=== PATIENT | female | born 1975 | race Caucasian/White ===

== ENCOUNTER → 2019-03-01 09:05 | Outpatient (CLI) | payer OTHER, SELFPAY ==
[2019-03-01 09:48] LABS: Hematocrit 39.7 % (36-46); Hemoglobin 13.7 g/dL (12.0-16.0); Mean Corpuscular HGB Conc 34.6 % (30-36); Mean Corpuscular Hemoglobin 30.8 PG (26-34); Mean Corpuscular Volume 89.1 fL (80-100); Platelet Count 221 X10^3/uL (150-400); Red Blood Cell Count 4.46 X10^6/uL (4.0-5.2); Red Cell Distribution Width 13.2 % (11.6-14.8); White Blood Cell Count 5.5 X10^3/uL (4.5-11.0)
[2019-03-01 10:06] LABS: Alanine Aminotransferase 18 IU/L (9-52); Albumin 4.2 g/dL (3.5-5.0); Albumin Globulin Ratio 1.4 (1.0-2.8); Alkaline Phosphatase 74 U/L (38-126); Aspartate Aminotransferase 24 IU/L (14-36); Bilirubin Total 0.5 mg/dL (0.2-1.3); Blood Urea Nitrogen 15 mg/dL (7-17); Calcium 8.9 mg/dL (8.4-10.2); Carbon Dioxide 29 mmol/L (22-32); Chloride 103 mmol/L (98-107); Cholesterol 253 mg/dL (140-199); Glucose 90 mg/dL (70-100); HDL Cholesterol 38 mg/dL (40-60); HEMOLYSIS < 15 (0-50); LDL Cholesterol Calculated 187 mg/dL (<100); Potassium 4.3 mmol/L (3.4-5.1); Sodium 139 mmol/L (137-145); Total Protein 7.2 g/dL (6.3-8.2); Triglycerides 141 mg/dL (35-150)
[2019-03-01 10:34] LABS: Thyroid Stimulating Hormone 1.67 uIU/mL (0.47-4.68)
== END ==
PROVIDERS: PCP Nurse Practitioner Family; Visit Provider Nurse Practitioner Family
DX: Z00.00 Encounter for general adult medical examination without abnormal findings (principal); E78.2 Mixed hyperlipidemia; E03.9 Hypothyroidism, unspecified
CPT/HCPCS: 36415; 80053; 80061; 84443; 85027

== ENCOUNTER → 2019-05-01 15:59 | Outpatient (CLI) | payer OTHER, SELFPAY ==
--- NOTE | 2019-05-01 16:05 | DI.RAD.S_ITS ---
PROCEDURE: XR KNEE LT 3V INDICATIONS: pain right elbow TECHNIQUE: 3 views of the knee were acquired. COMPARISON: None. FINDINGS: Bones: No fractures or dislocations. No suspicious bony lesions. Soft tissues: No joint effusion. No suspicious soft tissue calcifications. IMPRESSION: No acute osseous abnormalities. Dictated by: Manuel Quijano M.D. on 05/01/2019 at 17:58 Approved by: Manuel Quijano M.D. on 05/01/2019 at 17:59
--- NOTE | 2019-05-01 16:05 | DI.RAD.S_ITS ---
PROCEDURE: XR ELBOW RT MIN 3V INDICATIONS: pain right elbow TECHNIQUE: 3 views of the elbow were acquired. COMPARISON: None. FINDINGS: Bones: No fractures or dislocations. No suspicious bony lesions. Mild elbow joint degeneration with small osteophytes. Soft tissues: No elbow joint effusion. No suspicious soft tissue calcifications. IMPRESSION: No fracture or dislocation. Mild degenerative changes. Dictated by: Manuel Quijano M.D. on 05/01/2019 at 17:38 Approved by: Manuel Quijano M.D. on 05/01/2019 at 17:40
[2019-05-01 17:26] LABS: C-Reactive Protein Quant < 0.5 mg/dL (<1.0); Rheumatoid Factor < 8.6 IU/mL (<12.0); Uric Acid 4.2 mg/dL (2.5-6.2)
[2019-05-01 17:28] LABS: Erythrocyte Sedimentation Rate 11 MM/HR (0-20)
[2019-05-03 14:59] LABS: ANA Screen, IFA Positive (Negative); ANA Titer 1:40 titer (<1:40)
== END ==
PROVIDERS: PCP Nurse Practitioner Family; Visit Provider Nurse Practitioner Family
DX: M25.50 Pain in unspecified joint (principal)
CPT/HCPCS: 36415; 73080; 73562; 84550; 85651; 86038; 86140; 86430

== ENCOUNTER → 2019-05-21 15:42 | Outpatient (CLI) | payer OTHER, SELFPAY ==
--- NOTE | 2019-05-21 15:44 | DI.MG.S_ITS ---
BILATERAL DIGITAL SCREENING MAMMOGRAM 3D/2D WITH CAD: 05/21/2019 CLINICAL: Routine screening. Comparison is made to exam dated: 01/14/2018 [facility]. The tissue of both breasts is heterogeneously dense. This may lower the sensitivity of mammography. Current study was also evaluated with a Computer Aided Detection (CAD) system. No significant masses, calcifications, or other findings are seen in either breast. There has been no significant interval change. IMPRESSION: NEGATIVE There is no mammographic evidence of malignancy. A 1 year screening mammogram is recommended. This exam was interpreted at Station ID: [id number]. NOTE: For mammograms, a report in lay terms will be sent to the patient. Approximately 15% of breast malignancies will not be visualized mammographically. In the management of a palpable breast mass, a negative mammogram must not discourage biopsy of a clinically suspicious lesion. Electronically Signed By: Aron isabel/carina:05/21/2019 16:46:57 letter sent: Normal Exam ACR BI-RADS Category 1: Negative [id number]
== END ==
PROVIDERS: PCP Nurse Practitioner Family; Visit Provider Nurse Practitioner Family
DX: Z12.31 Encounter for screening mammogram for malignant neoplasm of breast (principal)
CPT/HCPCS: 77063; 77067

== ENCOUNTER → 2019-09-22 07:37 | Outpatient (CLI) | payer OTHER, SELFPAY ==
[2019-09-22 08:38] LABS: Cholesterol 253 mg/dL (140-199); HDL Cholesterol 35 mg/dL (40-60); LDL Cholesterol Calculated 182 mg/dL (<100); Triglycerides 178 mg/dL (35-150)
[2019-09-22 09:25] LABS: Thyroid Stimulating Hormone 2.92 uIU/mL (0.47-4.68)
== END ==
PROVIDERS: PCP Nurse Practitioner Family; Visit Provider Nurse Practitioner Family
DX: E78.2 Mixed hyperlipidemia (principal); E03.9 Hypothyroidism, unspecified
CPT/HCPCS: 36415; 80061; 84443

== ENCOUNTER 2019-12-22 20:49 | Emergency (ER) | payer OTHER, SELFPAY ==
[2019-12-22 20:53] VITALS: BP 152/81; PULSE 82; RESP 22; TEMP 36.7; O2SAT 100; BMI 27.4
--- NOTE | 2019-12-22 20:58 | DI.RAD.S_ITS ---
PROCEDURE: XR CHEST 1V INDICATIONS: cough, chest congestion TECHNIQUE: One view of the chest was acquired. COMPARISON: [facility], , CHEST 2 VIEW, 03/28/2015, 10:25. FINDINGS: Surgical changes and devices: None. Lungs and pleura: Lungs are clear. No pleural effusions or pneumothorax. Mediastinum: Mediastinal contours appear normal. Heart size is normal. Bones and chest wall: No suspicious bony lesions. Overlying soft tissues appear unremarkable. IMPRESSION: Normal chest. Dictated by: Xuan Ruvalcaba M.D. on 12/22/2019 at 22:22 Approved by: Xuan Ruvalcaba M.D. on 12/22/2019 at 22:23
[2019-12-22 23:57] VITALS: BP 150/69; PULSE 59; RESP 18; O2SAT 100
[2019-12-23 02:21] VITALS: BP 123/62; PULSE 75; RESP 77; O2SAT 99
--- NOTE | 2019-12-23 03:00 | ED_ITS ---
HPI - URI/Sore Throat General Chief Complaint: Upper Respiratory Symptoms Stated Complaint: respiratory issues, back pain Time Seen by Provider: 12/23/19 03:00 Source: patient Mode of arrival: Ambulatory Limitations: no limitations History of Present Illness HPI Narrative: 44-year-old female comes in with complaint of respiratory issues. Patient states while she was in [place] she developed a cough that fell wet but nonproductive. She had had a fever higher than 99 F, patient has had some stuffiness she states she has some difficulty popping her ears while traveling. She does not feel like she has a lot of nasal congestion. She felt a little bit dizzy this evening and her palms felt sweaty. She had a little bit of discomfort in her left upper back with cough. She denies any chest pressure or pain. Some mild shortness of breath. No nausea vomiting no other GI or urinary symptoms. No swelling in her extremities. Patient states she takes levothyroxine and a statin and denies any other medical issues. She has had hysterectomy. Patient is not on oral contraceptives. No tobacco. Symptoms started last Sunday. Related Data Home Medications Medication Instructions Recorded Confirmed Optifiber PO DAILY 05/01/19 05/01/19 olive leaf extract 250 mg capsule mg PO cap 05/01/19 05/01/19 Previous Rx's Medication Instructions Recorded atorvastatin 40 mg tablet 40 mg PO DAILY #90 tab 09/23/19 levothyroxine 50 mcg tablet 50 mcg PO QDAY #90 tab 09/23/19 Allergies Allergy/AdvReac Type Severity Reaction Status Date / Time benzonatate Allergy Intermediate Facial Verified 05/01/19 15:31 swelling sore throat amoxicillin Allergy Mild HIVES, RASH Verified 05/01/19 15:31 Sulfa (Sulfonamide Allergy Mild HIVES Verified 05/01/19 15:31 Antibiotics) Review of Systems Review of Systems ROS Unobtainable: All systems reviewed & are unremarkable except as noted in HPI and below Patient History Surgical History Status post endoscopy Status post vaginal hysterectomy Family History (Updated 07/09/14 @ 00:00 by Conversion Provider) Father Age: 75 Skin cancer Hypertension Mother Age: 73 Skin cancer High cholesterol Family history of thyroid problem Sister Age: 48 Skin cancer Social History Smoking Status: Never smoker second hand exposure: No alcohol intake: never substance use type: does not use Smoking Status: Never smoker alcohol intake frequency: 0-2 drinks per day Substance Use Type: does not use Exam Narrative Exam Narrative: GEN: well nourished, well appearing female, alert and oriented x 3, patient appears to be in mild distress. HEENT: Atraumatic, pupils are equal round reactive to light, extraocular movements are intact, nares are clear, TMs are slightly retracted with no fluid, there is no conjunctival pallor. Throat is clear without any exudates, erythema, tonsillar enlargement or uvular deviation, no lymphadenopathy noted HEART: Regular rate and rhythm without murmur, clicks, rubs. LUNGS:Lungs clear to auscultation, no wheezes, rales, crackles, chest moves symmetrically, no tachypnea. Patient has a mild wet cough throughout exam. ABD:bowel sounds normal, soft, non-tender, no guarding, rebound, rigidity, no masses noted, no hepatosplenomegaly MSCL: Non-tender, no muscle atrophy, full range of motion, normal gait NEURO:CN 2-12 intact, sensation normal SKIN: No rash, skin changes or erythema. Initial Vital Signs Initial Vital Signs: Vital Signs Temperature 98.1 F 12/22/19 20:53 Pulse Rate 82 12/22/19 20:53 Respiratory Rate 22 12/22/19 20:53 Blood Pressure 152/81 H 12/22/19 20:53 Pulse Oximetry 100 12/22/19 20:53 Course Orders Ordered: ED Orders 12/22/19 20:58 XR chest 1V Stat Vital Signs Vital signs: Vital Signs - 8 hr 12/22/19 23:57 12/23/19 02:21 12/23/19 03:30 Pulse Rate 59 L 75 75 Respiratory Rate 18 77 H 18 Blood Pressure [Right Arm] 150/69 H 123/62 128/70 Pulse Oximetry 100 99 98 MDM - URI/Sore Throat Imaging Data Chest x-ray: Radiologist's Impression: [address] [address] XRay Report Signed Patient: Kristyn Jasso LMR#: [id number] : 1975Acct:[id number] Age/Sex: 44 / FDate of Service: 12/22/19 Loc: ED Accession Number: [id number] Procedure: XR chest 1V Ordering Provider: Joanna Traylor D.O. PROCEDURE: XR CHEST 1V INDICATIONS: cough, chest congestion TECHNIQUE: One view of the chest was acquired. COMPARISON: [facility], CHEST 2 VIEW, 03/28/2015, 10:25. FINDINGS: Surgical changes and devices: None. Lungs and pleura: Lungs are clear. No pleural effusions or pneumothorax. Mediastinum: Mediastinal contours appear normal. Heart size is normal. Bones and chest wall: No suspicious bony lesions. Overlying soft tissues ap pear unremarkable. IMPRESSION: Normal chest. Dictated by: Xuan Ruvalcaba M.D. on 12/22/2019 at 22:22 Approved by: Xuan Ruvalcaba M.D. on 12/22/2019 at 22:23 [facility] Narrative Medical decision making narrative: Patient comes in with what appears to have bronchitis or viral respiratory infection. Patient is far outside the window for Tamiflu so influenza swab was not ordered. Patient has not had any travel outside of the country but has traveled to [place]. My suspicion for PE is low as she has clearly infectious type symptoms here in the emergency department. She was given a Z-Mohamud had 2 tablets the 1st day and 1 tablet today, she was given albuterol inhaler she believes I am unable to double check her record but patient has not tried this. Plan for patient to continue with watchful waiting, she does not have any wheezing exam so we discussed albuterol would likely not be very helpful but she could try couple puffs to see if it helps with her cough. Discharge Plan Departure Patient Disposition: Home Clinical Impression: Bronchitis Discharge Date/Time: 12/23/19 03:43 Instructions: DI for Acute Bronchitis Activity Restrictions/Additional Instructions: Follow-up with primary care in the next week if your symptoms are not improving. You may continue medications as prescribed. Return to the ER for worsening symptoms, persistent fevers greater 100.4 F, new shortness of breath, passing out, new chest pain or pressure, persistent vomiting, black or bloody stools, new weakness numbness or other new or concerning symptoms. Prescriptions: No Action atorvastatin 40 mg tablet 40 mg PO DAILY Qty: 90 RF: 0 levothyroxine [Synthroid] 50 mcg tablet 50 mcg PO QDAY Qty: 90 RF: 1 Optifiber PO DAILY RF: 0 olive leaf extract 250 mg capsule PO RF: 0 Referrals: Gricelda Perera ARNP [Primary Care Provider] - Stand Alone Forms: Work Release Note, Work/School Release
[2019-12-23 03:30] VITALS: BP 128/70; PULSE 75; RESP 18; O2SAT 98
== END 2019-12-23 03:43 | disposition home or self-care (01) ==
PROVIDERS: Emergency Provider Emergency Medicine; PCP Nurse Practitioner Family
DX: J40 Bronchitis, not specified as acute or chronic (principal)
CPT/HCPCS: 71045; 99282; 99283

== ENCOUNTER → 2020-01-06 08:26 | Outpatient (CLI) | payer OTHER, SELFPAY ==
[2020-01-06 09:51] LABS: Cholesterol 153 mg/dL (140-199); HDL Cholesterol 36 mg/dL (40-60); LDL Cholesterol Calculated 88 mg/dL (<100); Triglycerides 143 mg/dL (35-150)
[2020-01-06 11:08] LABS: Thyroid Stimulating Hormone 2.08 uIU/mL (0.47-4.68)
== END ==
PROVIDERS: PCP Nurse Practitioner Family; Referring Provider Nurse Practitioner Family; Visit Provider Nurse Practitioner Family
DX: E03.9 Hypothyroidism, unspecified (principal); E78.2 Mixed hyperlipidemia
CPT/HCPCS: 36415; 80061; 84443

== ENCOUNTER → 2020-09-11 09:52 | Outpatient (CLI) | payer OTHER, SELFPAY ==
[2020-09-11 10:45] LABS: Hematocrit 41.5 % (36-46); Mean Corpuscular HGB Conc 33.7 % (30-36); Mean Corpuscular Hemoglobin 30.6 PG (26-34); Mean Corpuscular Volume 90.9 fL (80-100); Platelet Count 194 X10^3/uL (150-400); Red Blood Cell Count 4.57 X10^6/uL (4.0-5.2); Red Cell Distribution Width 13.1 % (11.6-14.8); White Blood Cell Count 6.2 X10^3/uL (4.5-11.0)
[2020-09-11 11:02] LABS: Alanine Aminotransferase 8 IU/L (<35); Albumin 4.3 g/dL (3.5-5.0); Albumin Globulin Ratio 1.5 (1.0-2.8); Alkaline Phosphatase 74 U/L (38-126); Aspartate Aminotransferase 24 IU/L (14-36); BUN Creatinine Ratio 16.5 (6-22); Bilirubin Total 0.7 mg/dL (0.2-1.3); Blood Urea Nitrogen 15 mg/dL (7-17); Calcium 8.9 mg/dL (8.4-10.2); Carbon Dioxide 29 mmol/L (22-32); Chloride 106 mmol/L (98-107); Cholesterol 132 mg/dL (140-199); Estimated Glomerular Filt Rate > 60.0 mL/min (>60); Globulin 2.9 g/dL (1.7-4.1); Glucose 95 mg/dL (70-100); HDL Cholesterol 36 mg/dL (40-60); HEMOLYSIS < 15 (0-50); LDL Cholesterol Calculated 67 mg/dL (<100); Potassium 4.3 mmol/L (3.4-5.1); Sodium 138 mmol/L (137-145); Total Protein 7.2 g/dL (6.3-8.2); Triglycerides 145 mg/dL (35-150)
[2020-09-11 13:28] LABS: TSH w/ Reflex to FT4 1.79 uIU/mL (0.47-4.68)
== END ==
PROVIDERS: PCP Nurse Practitioner Family; Referring Provider Nurse Practitioner Family; Visit Provider Nurse Practitioner Family
DX: E03.9 Hypothyroidism, unspecified (principal); K62.5 Hemorrhage of anus and rectum; E78.2 Mixed hyperlipidemia
CPT/HCPCS: 36415; 80053; 80061; 84443; 85027

== ENCOUNTER → 2020-09-22 17:46 | Outpatient (CLI) | payer OTHER, SELFPAY ==
--- NOTE | 2020-09-22 17:47 | DI.MG.S_ITS ---
BILATERAL DIGITAL SCREENING MAMMOGRAM 3D/2D WITH CAD: 09/22/2020 CLINICAL: Routine screening. Comparison is made to exams dated: 05/21/2019 mammogram and 01/14/2018 mammogram - [facility]. The tissue of both breasts is heterogeneously dense. This may lower the sensitivity of mammography. Current study was also evaluated with a Computer Aided Detection (CAD) system. There is a possible 0.5 cm round equal density asymmetry with an indistinct margin in the left breast anterior depth central to the nipple seen on the craniocaudal view only 2.5 cm from the nipple. This is more prominent. No other significant masses, calcifications, or other findings are seen in either breast. IMPRESSION: INCOMPLETE: NEEDS ADDITIONAL IMAGING EVALUATION The possible 0.5 cm round equal density asymmetry in the left breast is indeterminate. Additional views with possible ultrasound are recommended. This exam was interpreted at Station ID: [id number]. NOTE: For mammograms, a report in lay terms will be sent to the patient. Approximately 15% of breast malignancies will not be visualized mammographically. In the management of a palpable breast mass, a negative mammogram must not discourage biopsy of a clinically suspicious lesion. Electronically Signed By: Herb Lucero M.D., jr/carina:09/23/2020 07:46:05 letter sent: Additional Imaging Needed ACR BI-RADS Category 0: Incomplete 3340F
== END ==
PROVIDERS: PCP Nurse Practitioner Family; Referring Provider Nurse Practitioner Family; Visit Provider Nurse Practitioner Family
DX: R92.8 Other abnormal and inconclusive findings on diagnostic imaging of breast (principal)
CPT/HCPCS: 77063; 77067

== ENCOUNTER → 2020-12-27 11:01 | Outpatient (CLI) | payer OTHER, SELFPAY ==
[2020-12-27 12:27] LABS: COVID19 -Nasal RAPID Negative (Negative)
== END ==
PROVIDERS: PCP Nurse Practitioner Family; Visit Provider Surgery
DX: Z01.812 Encounter for preprocedural laboratory examination (principal); Z20.822 Contact with and (suspected) exposure to COVID-19
CPT/HCPCS: 87635; C9803

== ENCOUNTER 2020-12-28 11:59 | Day surgery (SDC) | payer OTHER, SELFPAY ==
[2020-12-28] VITALS (7 sets, daily range): BP systolic 97–125; BP diastolic 62–82; PULSE 78–93; RESP 12–16; TEMP 36.8–37.6; O2SAT 97–100; BMI 27.8
[2020-12-28] MEDS: SODIUM CHLORIDE 0.9% 1,000 ML 200 ML IV (12:09)
--- NOTE | 2020-12-28 12:48 | PM.PREOP ---
Pre-operative Note COVID-19 COVID-19 status: Negative Result date/Date tested (Pos, Neg/Pending): 12/27/20 Interval Note History & Physical reviewed/Exam performed by Physician: Yes Changes to H&P: No ASA Class (for procedural sedation): I
[2020-12-28] MEDS: MIDAZOLAM 5 MG/5 ML VIAL IV (12:59)
[2020-12-28] MEDS: fentaNYL 250 MCG/5 ML INJ IV (13:04)
--- NOTE | 2020-12-28 13:13 | P.OP.ENDO_ITS ---
Operative Date/Time/Diagnoses Date of procedure: 12/28/20 Time of procedure: 13:13 Pre-op diagnosis: Rectal bleeding Post-op diagnosis: other (Internal and external hemorrhoids, otherwise normal colonoscopy) Procedure & Clinicians Study performed: Colonoscopy Procedural sedation performed by the endoscopist Same procedure as scheduled: Yes Indications: Rectal bleeding Surgeon: Lisa Palomo Procedure Notes SCOAP/Timeout: Performed Procedure in detail: The patient was brought to the room and placed in left lateral decubitus position with all bony prominences padded. A time-out was performed and then the patient was given procedural sedation starting with 2 mg of Versed and 100 mcg of fentanyl. A total of 5 mg of Versed and 200 micro g of fentanyl were given for the entire procedure. Vitals were monitored throughout the procedure and remained stable. Once adequately sedated, the procedure was begun. A rectal exam was performed revealing no abnormalities. The colonoscope was then introduced to the rectum and advanced to the cecum in the usual fashion. The cecum was identified by the appendiceal orifice, the mucosal tri- fold, and the ileocecal valve. The scope was then retracted while rotating side to side and examining each mucosal fold. At the conclusion of the procedure retroflexion was performed and small grade 1-2 internal hemorrhoids without stigmata of bleeding were seen. The scope was then withdrawn from the rectum the procedure was concluded. The patient tolerated the procedure well and was transferred to the PACU in stable condition. Scope withdrawal time: 7 Sedation minutes: 18 Findings: internal hemorrhoids Specimen(s): none sent Complications: none Impression: Normal colon, low-grade internal hemorrhoids without stigmata of recent bleeding Post-procedure Recommendations: Colonscopy in 10 years Follow up: as needed Disposition: PACU
== END 2020-12-28 13:53 | disposition home or self-care (01) ==
PROVIDERS: PCP Nurse Practitioner Family; Referring Provider Surgery; Visit Provider Surgery
PROC: 0DJD8ZZ Inspection of Lower Intestinal Tract, Via Natural or Artificial Opening Endoscopic (ICD-10-PCS; CPT 45378; principal; 2020-12-28 13:00)
DX: K64.0 First degree hemorrhoids (principal); K64.4 Residual hemorrhoidal skin tags; E03.9 Hypothyroidism, unspecified; N81.6 Rectocele; K59.00 Constipation, unspecified
CPT/HCPCS: 45378; 99152; J2250; J3010

== ENCOUNTER → 2021-08-13 09:30 | Outpatient (CLI) | payer OTHER, SELFPAY ==
[2021-08-13 10:04] LABS: Add Manual Diff / Slide Review NO; Basophils Absolute Auto 100 /uL (0-100); Basophils Percent Auto 0.9 % (0-2); Eosinophils Absolute Auto 100 /uL (0-450); Eosinophils Percent Auto 1.5 % (2-4); Hematocrit 40.3 % (36-46); Hemoglobin 13.8 g/dL (12.0-16.0); Lymphocytes Absolute Auto 1100 /uL (1100-4500); Lymphocytes Percent Auto 18.1 % (25-40); Mean Corpuscular HGB Conc 34.2 % (30-36); Mean Corpuscular Hemoglobin 31.1 PG (26-34); Mean Corpuscular Volume 90.7 fL (80-100); Monocytes Absolute Auto 500 /uL (0-900); Neutrophils Absolute Auto 4200 /uL (1500-7000); Neutrophils Percent Auto 71.5 % (50-75); Platelet Count 192 X10^3/uL (150-400); Red Blood Cell Count 4.44 X10^6/uL (4.0-5.2); Red Cell Distribution Width 12.8 % (11.6-14.8); White Blood Cell Count 5.9 X10^3/uL (4.5-11.0)
[2021-08-13 10:43] LABS: Alanine Aminotransferase 11 IU/L (<35); Albumin 4.3 g/dL (3.5-5.0); Albumin Globulin Ratio 1.5 (1.0-2.8); Alkaline Phosphatase 82 U/L (38-126); Aspartate Aminotransferase 22 IU/L (14-36); BUN Creatinine Ratio 10.4 (6-22); Bilirubin Total 0.5 mg/dL (0.2-1.3); Blood Urea Nitrogen 10 mg/dL (7-17); Carbon Dioxide 30 mmol/L (22-32); Chloride 106 mmol/L (98-107); Cholesterol 140 mg/dL (140-199); Estimated Glomerular Filt Rate > 60.0 mL/min (>60); Globulin 2.8 g/dL (1.7-4.1); Glucose 98 mg/dL (70-100); HDL Cholesterol 47 mg/dL (40-60); HEMOLYSIS < 15 (0-50); LDL Cholesterol Calculated 77 mg/dL (<100); Potassium 4.6 mmol/L (3.4-5.1); Sodium 139 mmol/L (137-145); Total Protein 7.1 g/dL (6.3-8.2); Triglycerides 80 mg/dL (35-150)
[2021-08-13 11:12] LABS: TSH w/ Reflex to FT4 1.88 uIU/mL (0.47-4.68)
[2021-08-13 11:30] LABS: Vitamin B12 Reflex MMA if <400 328 pg/mL (239-931)
[2021-08-16 09:03] LABS: Methylmalonic Acid,Serum 104 nmol/L (0-378)
== END ==
PROVIDERS: PCP Nurse Practitioner Family; Referring Provider Nurse Practitioner Family; Visit Provider Nurse Practitioner Family
DX: E03.9 Hypothyroidism, unspecified (principal); E78.2 Mixed hyperlipidemia; R09.89 Other specified symptoms and signs involving the circulatory and respiratory systems
CPT/HCPCS: 36415; 80053; 80061; 82607; 83921; 84443; 85025

== ENCOUNTER → 2021-08-22 11:24 | Outpatient (CLI) | payer OTHER, SELFPAY ==
[2021-08-22 16:10] LABS: COVID19 -Nasal RAPID Negative (Negative)
== END ==
PROVIDERS: PCP Nurse Practitioner Family; Visit Provider Physician Assistant
DX: Z01.812 Encounter for preprocedural laboratory examination (principal); Z20.822 Contact with and (suspected) exposure to COVID-19
CPT/HCPCS: 87635

== ENCOUNTER → 2021-08-23 13:20 | Outpatient (CLI) | payer OTHER, SELFPAY ==
--- NOTE | 2021-08-23 14:26 | PM.TREADMILL ---
Cardiac Stress Test Report Referral & Results Date Patient Seen: 08/23/21 Requesting provider: Gricelda Perera Indication: Chest pain Rest ECG: Unremarkable Procedure Note: Today following both written and verbal informed consent, the patient was exercised according to a standard Akin protocol. The patient exercised for a total of 9 minutes 30 seconds achieving a maximum heart rate of 182. Patient's maximum systolic blood pressure was 168. This was an estimated 10.1 MET's. There are no ST-T segment changes identified. There was some modest motion artifact but even upon cessation of movements there is no ST-T segment changes Rare PAC that was asymptomatic Function aerobic impairment rates about-15% on the active scale Impression: No evidence of ischemia Better than average exercise capacity And rare PAC as above Please note: Actual ECG tracings can be found in the PACS system.
== END ==
PROVIDERS: PCP Nurse Practitioner Family; Referring Provider Nurse Practitioner Family; Visit Provider Nurse Practitioner Family
DX: R09.89 Other specified symptoms and signs involving the circulatory and respiratory systems (principal); R07.9 Chest pain, unspecified
CPT/HCPCS: 93016; 93017; 93018

== ENCOUNTER → 2021-08-25 09:47 | Outpatient (CLI) | payer OTHER, SELFPAY ==
--- NOTE | 2021-09-09 08:17 | PM.CARDMON.1 ---
[facility]stitch Report Referral & Results Date Patient Seen: 08/25/21 Requesting provider: Gricelda Perera Duration of monitoring (days): 8 Diary information: There were 2 patient triggered events and 1 patient diary entry All 3 of these patient events were associated with sinus rhythm only Data: Minimum heart rate identified was 51 beats per minute at 01:01 on 08/30/2021 Maximum sinus heart rate was 143 beats per minute at 08:38 on 08/26/2021 Maximum overall heart rate was 218 beats per minute at 10:29 on 08/27/2021 during a 4 beat run of nonsustained ventricular tachycardia Less than 1% of identified beats were ventricular or supraventricular ectopic in origin, which would classify them as rare. There was the 1 run nonsustained monomorphic ventricular tachycardia consisting of 4 beats at a rate of 218 beats per minute. There were 3 runs of SVT with the fastest being 5 beats at a rate of 184 beats per minute and the longest lasting 12.6 seconds Impression: 7+ day cardiac cath lab technologist demonstrating single run of nonsustained ventricular tachycardia as above Otherwise very rare very brief runs of SVT also identified
== END ==
PROVIDERS: PCP Nurse Practitioner Family; Referring Provider Nurse Practitioner Family; Visit Provider Nurse Practitioner Family
DX: R09.89 Other specified symptoms and signs involving the circulatory and respiratory systems (principal)
CPT/HCPCS: 93242; 93244

== ENCOUNTER → 2021-10-10 09:37 | Outpatient (CLI) | payer OTHER, SELFPAY | PROVIDERS: PCP Nurse Practitioner Family; Referring Provider Nurse Practitioner Family; Visit Provider Nurse Practitioner Family | DX: L03.90 Cellulitis, unspecified (principal) | CPT/HCPCS: 87070; 87075; 87205 ==

== ENCOUNTER → 2022-03-09 10:25 | Outpatient (CLI) | payer OTHER, SELFPAY ==
--- NOTE | 2022-03-09 | DI.ECHO.S_ITS ---
[facility] +---------+ : : [address] : : : : [id number] : : : : Phone: [phone]+ Echocardiogram Report + + :Name: IBETH LANDRY Study Date: 03/09/2022 Height: 64 in : :[facility] ReadingLocation: Weight: 162 lb : : Gender: Female BSA: 1.8 m2 : :: 1975 Age: 46 yrs BP: 141/83 mmHg: :Reason For Study: Arrhythmia : :Ordering Physician: ANDREE, : :TANNA Bo Performed By: Mychal Mondragon : :Referring: TANNA QUINONES : + + Interpretation Summary The ejection fraction is estimated to be 55-60%. Diastolic parameters suggest probable normal left ventricular diastolic function and normal filling pressures. The right ventricle is normal in size and function. No significant valvular abnormalities. Unable to estimate PASP. Procedure: A two-dimensional transthoracic echocardiogram with color flow and Doppler was performed. The study quality was technically adequate. There is no prior echocardiogram noted for this patient. Left Ventricle: The left ventricle is normal in size and wall thickness. Left ventricular systolic function is normal. The ejection fraction is estimated to be 55-60%. There are no focal wall motion abnormalities. Diastolic parameters suggest probable normal left ventricular diastolic function and normal filling pressures. Right Ventricle: The right ventricle is normal in size and function. Atria: Both atria are normal in size. The interatrial septum grossly appears intact with no obvious evidence for an atrial septal defect. Mitral Valve: The mitral valve is normal in structure and function. There is trace mitral regurgitation. Aortic Valve: The aortic valve opens well. There is no aortic valve stenosis. No aortic regurgitation is present. Tricuspid Valve: The tricuspid valve is normal in structure and function. There is a trace or physiologic amount of tricuspid regurgitation. Pulmonary artery pressures cannot be estimated because of the lack of a measurable TR jet velocity. Pulmonic Valve: The pulmonic valve is normal in structure and function. There is no pulmonic valvular regurgitation. Great Vessels: The aortic root is normal size. The dimensions of the ascending aorta are normal. The IVC is of normal diameter and collapses greater than 50% with a sniff. This suggests a low right atrial pressure of 3 mm Hg. Pericardium/ Pleura There is no pericardial effusion. There is no pleural effusion. MMode/2D Measurements & Calculations LVIDd: 5.0 cm LVOT diam: 2.0 cm LVIDs: 3.3 cm Ao root diam: 3.1 cm FS: 34.0 % asc Aorta Diam: 2.8 cm IVSd: 0.80 cm LVPWd: 0.70 cm LV rosenthal. diameter/BSA (cm/m^2): 2.8 LV sys. diameter/BSA (cm/m^2): 1.8 LA dimension: 3.1 cm RA long axis: 4.6 cm LA A2 area: 12.7 cm2 LA A4 area: 12.3 cm2 LA length (vol): 4.5 cm LA vol: 29.3 ml LA vol index: 16.4 ml/m2 TAPSE_phl: 1.9 cm Doppler Measurements & Calculations Ao V2 max: 102.0 cm/sec LVOT Max Easton: 104.0 cm/sec Ao V2 mean: 76.4 cm/sec LV V1 max P.3 mmHg Ao max P.0 mmHg LV V1 VTI: 22.0 cm Ao mean P.0 mmHg SIDRA(I,D): 3.0 cm2 Ao V2 VTI: 23.4 cm SIDRA(V,D): 3.2 cm2 sev ratio: 0.94 SIDRA indexed to BSA (cm^2/m^2): 1.7 MV E max easton: 76.7 cm/sec SV(LVOT): 69.1 ml MV A max easton: 56.6 cm/sec MV E/A: 1.4 Med Peak E' Easton: 11.2 cm/sec E/E' med: 6.8 Lat Peak E' Easton: 14.9 cm/sec E/E' lat: 5.1 E/e' average: 6.0 MV dec time: 0.24 sec AV VR_phl: 1.0 MV P1/2t-pr_phl: 72.0 msec SIDRA(VTI)/BSA_phl: 1.6 Reading Physician:02:07 PM
== END ==
PROVIDERS: PCP Family Medicine; Referring Provider Internal Medicine Cardiovascular Disease; Visit Provider Internal Medicine Cardiovascular Disease
DX: I49.9 Cardiac arrhythmia, unspecified (principal); R00.2 Palpitations
CPT/HCPCS: 93306

== ENCOUNTER → 2022-03-27 09:57 | Outpatient (CLI) | payer OTHER, SELFPAY ==
--- NOTE | 2022-03-27 10:00 | DI.RAD.S_ITS ---
PROCEDURE: XR FOOT RT MIN 3V INDICATIONS: right foot pain TECHNIQUE: 3 views of the foot were acquired. COMPARISON: None. FINDINGS: Bones: No fractures or dislocations. No suspicious bony lesions. There is mild varus angulation of the 1st metatarsal with compensatory valgus angulation of the 1st proximal phalanx reflecting hallux valgus. Soft tissues: No tibiotalar joint effusion. Achilles tendon appears normal. IMPRESSION: Mild hallux valgus Approved by: Romulo Grider M.D. on 03/27/2022 at 11:11
== END ==
PROVIDERS: PCP Family Medicine; Referring Provider Family Medicine; Visit Provider Family Medicine
DX: M20.11 Hallux valgus (acquired), right foot (principal); M79.671 Pain in right foot
CPT/HCPCS: 73630

== ENCOUNTER → 2022-08-12 08:28 | Outpatient (CLI) | payer OTHER, SELFPAY ==
[2022-08-12 09:51] LABS: Hematocrit 40.8 % (36-46); Hemoglobin 13.9 g/dL (12.0-16.0); Mean Corpuscular HGB Conc 34.1 % (30-36); Mean Corpuscular Hemoglobin 30.9 PG (26-34); Mean Corpuscular Volume 90.7 fL (80-100); Platelet Count 219 X10^3/uL (150-400); White Blood Cell Count 5.6 X10^3/uL (4.5-11.0)
[2022-08-12 10:01] LABS: Alanine Aminotransferase 9 IU/L (<35); Albumin 4.2 g/dL (3.5-5.0); Albumin Globulin Ratio 1.4 (1.0-2.8); Alkaline Phosphatase 75 U/L (38-126); Aspartate Aminotransferase 22 IU/L (14-36); Bilirubin Total 0.6 mg/dL (0.2-1.3); Blood Urea Nitrogen 14 mg/dL (7-17); Calcium 8.8 mg/dL (8.4-10.2); Carbon Dioxide 27 mmol/L (22-32); Chloride 104 mmol/L (98-107); Cholesterol 140 mg/dL (140-199); Estimated Glomerular Filt Rate > 60 mL/min (>60); Globulin 3.1 g/dL (1.7-4.1); Glucose 92 mg/dL (70-100); HDL Cholesterol 40 mg/dL (40-60); HEMOLYSIS < 15 (0-50); LDL Cholesterol Calculated 75 mg/dL (<100); Potassium 4.6 mmol/L (3.4-5.1); Sodium 139 mmol/L (137-145); Total Protein 7.3 g/dL (6.3-8.2); Triglycerides 127 mg/dL (35-150)
[2022-08-12 10:30] LABS: Free T4, Direct Thyroxine 1.21 ng/dL (0.78-2.19)
[2022-08-12 10:44] LABS: Thyroid Stimulating Hormone 1.68 uIU/mL (0.47-4.68)
== END ==
PROVIDERS: PCP Family Medicine; Referring Provider Nurse Practitioner Family; Visit Provider Nurse Practitioner Family
DX: Z00.00 Encounter for general adult medical examination without abnormal findings (principal); E03.9 Hypothyroidism, unspecified
CPT/HCPCS: 36415; 80053; 80061; 84439; 84443; 85027

== ENCOUNTER → 2023-01-18 16:17 | Outpatient (CLI) | payer OTHER, SELFPAY ==
[2023-01-18 17:21] LABS: Blood Urea Nitrogen 11 mg/dL (7-17); Calcium 8.5 mg/dL (8.4-10.2); Carbon Dioxide 28 mmol/L (22-32); Chloride 101 mmol/L (98-107); Estimated Glomerular Filt Rate > 60 mL/min (>60); Glucose 91 mg/dL (70-100); HEMOLYSIS < 15 (0-50); Potassium 3.8 mmol/L (3.4-5.1); Sodium 138 mmol/L (137-145)
== END ==
PROVIDERS: PCP Family Medicine; Referring Provider Family Medicine; Visit Provider Family Medicine
DX: R79.89 Other specified abnormal findings of blood chemistry (principal)
CPT/HCPCS: 36415; 80048

== ENCOUNTER → 2023-07-05 07:03 | Outpatient (CLI) | payer OTHER, SELFPAY ==
[2023-07-05 08:54] LABS: BUN Creatinine Ratio 12.6 (6-22); Blood Urea Nitrogen 12 mg/dL (7-17); Calcium 8.8 mg/dL (8.4-10.2); Carbon Dioxide 27 mmol/L (22-32); Chloride 105 mmol/L (98-107); Cholesterol 140 mg/dL (140-199); Estimated Glomerular Filt Rate > 60 mL/min (>60); Glucose 92 mg/dL (70-100); HDL Cholesterol 41 mg/dL (40-60); HEMOLYSIS < 15 (0-50); LDL Cholesterol Calculated 71 mg/dL (<100); Potassium 4.2 mmol/L (3.4-5.1); Sodium 137 mmol/L (137-145); Triglycerides 142 mg/dL (35-150)
[2023-07-05 09:13] LABS: TSH w/ Reflex to FT4 2.48 uIU/mL (0.47-4.68)
== END ==
PROVIDERS: PCP Family Medicine; Referring Provider Family Medicine; Visit Provider Family Medicine
DX: E03.9 Hypothyroidism, unspecified (principal); E78.2 Mixed hyperlipidemia
CPT/HCPCS: 36415; 80048; 80061; 84443

== ENCOUNTER → 2023-12-18 07:52 | Outpatient (CLI) | payer OTHER, SELFPAY ==
[2023-12-18 08:40] LABS: Add Manual Diff / Slide Review NO; Basophils Absolute Auto 0 /uL (0-100); Basophils Percent Auto 0.5 % (0-2); Eosinophils Absolute Auto 100 /uL (0-450); Eosinophils Percent Auto 1.2 % (2-4); Hematocrit 38.2 % (36-46); Hemoglobin 13.2 g/dL (12.0-16.0); Lymphocytes Absolute Auto 800 /uL (1100-4500); Lymphocytes Percent Auto 13.4 % (25-40); Mean Corpuscular HGB Conc 34.6 % (30-36); Mean Corpuscular Hemoglobin 30.7 PG (26-34); Mean Corpuscular Volume 88.9 fL (80-100); Monocytes Absolute Auto 400 /uL (0-900); Neutrophils Absolute Auto 4800 /uL (1500-7000); Neutrophils Percent Auto 77.9 % (50-75); Platelet Count 215 X10^3/uL (150-400); Red Cell Distribution Width 12.9 % (11.6-14.8); White Blood Cell Count 6.2 X10^3/uL (4.5-11.0)
[2023-12-18 08:47] LABS: HEMOLYSIS < 15 (0-50)
[2023-12-18 08:52] LABS: Alanine Aminotransferase 10 IU/L (<35); Albumin Globulin Ratio 1.3 (1.0-2.8); Alkaline Phosphatase 81 U/L (38-126); Aspartate Aminotransferase 18 IU/L (14-36); BUN Creatinine Ratio 12.9 (6-22); Bilirubin Total 0.6 mg/dL (0.2-1.3); Blood Urea Nitrogen 13 mg/dL (7-17); Calcium 8.8 mg/dL (8.4-10.2); Carbon Dioxide 25 mmol/L (22-32); Chloride 104 mmol/L (98-107); Cholesterol 123 mg/dL (140-199); Estimated Glomerular Filt Rate > 60 mL/min (>60); Globulin 3.1 g/dL (1.7-4.1); Glucose 97 mg/dL (70-100); HDL Cholesterol 39 mg/dL (40-60); LDL Cholesterol Calculated 69 mg/dL (<100); Potassium 4.3 mmol/L (3.4-5.1); Sodium 138 mmol/L (137-145); Total Protein 7.1 g/dL (6.3-8.2); Triglycerides 75 mg/dL (35-150)
[2023-12-18 09:08] LABS: Free T3, Triiodothyronine Free 4.05 pg/mL (2.77-5.27); Free T4, Direct Thyroxine 1.41 ng/dL (0.78-2.19)
[2023-12-18 09:21] LABS: Thyroid Stimulating Hormone 2.54 uIU/mL (0.47-4.68)
== END ==
PROVIDERS: PCP Family Medicine; Referring Provider Family Medicine; Visit Provider Family Medicine
DX: Z00.00 Encounter for general adult medical examination without abnormal findings (principal); R79.89 Other specified abnormal findings of blood chemistry; I49.9 Cardiac arrhythmia, unspecified; E03.9 Hypothyroidism, unspecified; E78.2 Mixed hyperlipidemia
CPT/HCPCS: 36415; 80053; 80061; 84439; 84443; 84481; 85025

== ENCOUNTER → 2024-12-24 16:27 | Outpatient (CLI) | payer OTHER, SELFPAY ==
--- NOTE | 2024-12-24 16:28 | DI.RAD.S_ITS ---
PROCEDURE: XR HIP W PEL IF DONE LT 2V INDICATIONS: chronic back and hip pain, suspicious for nerve impingement TECHNIQUE: AP pelvis with lateral view(s) of the left hip(s). COMPARISON: None. FINDINGS: Bones: No fractures or dislocations. Pelvic ring appears intact. No suspicious bony lesions. Soft tissues: The visualized bowel gas pattern is normal. No suspicious soft tissue calcifications. IMPRESSION: No acute bony abnormality. Dictated by: Lacho Humphrey M.D. on 12/25/2024 at 17:27 Approved by: Lacho Humphrey M.D. on 12/25/2024 at 17:28
--- NOTE | 2024-12-24 16:28 | DI.RAD.S_ITS ---
PROCEDURE: XR LUMBAR SPINE MIN 4V INDICATIONS: chronic back and hip pain, suspicious for nerve impingement TECHNIQUE: 5 views of the lumbar spine were acquired, including bilateral oblique views. COMPARISON: None. FINDINGS: Bones: 5 nonrib-bearing vertebrae are present. Minor anterior osteophytosis noted at the L2-3 and L3-4 levels. There is normal bony alignment. No vertebral body compression fractures. No suspicious bony lesions. Soft tissues: Overlying bowel gas pattern is normal. No suspicious soft tissue calcifications. Oblique images: No pars defects. IMPRESSION: No acute bony abnormality. Dictated by: Lacho Humphrey M.D. on 12/25/2024 at 17:26 Approved by: Lacho Humphrey M.D. on 12/25/2024 at 17:27
== END ==
PROVIDERS: PCP Family Medicine; Referring Provider Family Medicine; Visit Provider Family Medicine
DX: M25.559 Pain in unspecified hip (principal); M54.9 Dorsalgia, unspecified
CPT/HCPCS: 72110; 73502

== ENCOUNTER → 2024-12-27 10:00 | Outpatient (CLI) | payer OTHER, SELFPAY ==
[2024-12-27 12:19] LABS: Add Manual Diff / Slide Review NO; Basophils Absolute Auto 0 /uL (0-100); Basophils Percent Auto 0.8 % (0-2); Eosinophils Absolute Auto 100 /uL (0-450); Eosinophils Percent Auto 1.2 % (2-4); Hematocrit 39.4 % (36-46); Hemoglobin 13.6 g/dL (12.0-16.0); Lymphocytes Absolute Auto 900 /uL (1100-4500); Mean Corpuscular HGB Conc 34.5 % (30-36); Mean Corpuscular Hemoglobin 31.1 PG (26-34); Mean Corpuscular Volume 90.4 fL (80-100); Monocytes Absolute Auto 500 /uL (0-900); Monocytes Percent Auto 8.7 % (3-14); Neutrophils Absolute Auto 3900 /uL (1500-7000); Neutrophils Percent Auto 72.3 % (50-75); Platelet Count 209 X10^3/uL (150-400); Red Blood Cell Count 4.36 X10^6/uL (4.0-5.2); Red Cell Distribution Width 13.1 % (11.6-14.8); White Blood Cell Count 5.4 X10^3/uL (4.5-11.0)
[2024-12-27 12:47] LABS: Erythrocyte Sedimentation Rate 8 MM/HR (0-20)
[2024-12-27 13:19] LABS: Alkaline Phosphatase 88 U/L (38-126); Aspartate Aminotransferase 23 IU/L (14-36); BUN Creatinine Ratio 11.9 (6-22); Bilirubin Total 0.6 mg/dL (0.2-1.3); Blood Urea Nitrogen 13 mg/dL (7-17); Carbon Dioxide 25 mmol/L (22-32); Estimated Glomerular Filt Rate > 60 mL/min (>60); HEMOLYSIS < 15 (0-50)
[2024-12-27 13:26] LABS: Alanine Aminotransferase 14 IU/L (<35); Albumin 4.1 g/dL (3.5-5.0); Albumin Globulin Ratio 1.6 (1.0-2.8); Chloride 106 mmol/L (98-107); Cholesterol 135 mg/dL (140-199); Globulin 2.5 g/dL (1.7-4.1); Glucose 89 mg/dL (70-100); HDL Cholesterol 44 mg/dL (40-60); LDL Cholesterol Calculated 75 mg/dL (<100); Potassium 5.1 mmol/L (3.4-5.1); Sodium 139 mmol/L (137-145); Total Protein 6.6 g/dL (6.3-8.2); Triglycerides 80 mg/dL (35-150)
[2024-12-27 14:30] LABS: TSH w/ Reflex to FT4 1.38 uIU/mL (0.47-4.68)
== END ==
LOC: LAB 10:01
PROVIDERS: PCP Family Medicine; Referring Provider Family Medicine; Visit Provider Family Medicine
DX: Z00.00 Encounter for general adult medical examination without abnormal findings (principal); R79.89 Other specified abnormal findings of blood chemistry; I49.9 Cardiac arrhythmia, unspecified; E03.9 Hypothyroidism, unspecified; E78.2 Mixed hyperlipidemia
CPT/HCPCS: 36415; 80053; 80061; 84443; 85025; 85651

== ENCOUNTER 2025-01-12 16:03 | Emergency (ER) | payer OTHER, SELFPAY ==
[2025-01-12 16:23] VITALS: BP 121/65; PULSE 88; RESP 18; TEMP 37; O2SAT 98; BMI 29.2
--- NOTE | 2025-01-12 16:29 | EKG_ITS ---
[id number] [address] Test Date: 2025-01-12 Pat Name: Kristyn Jasso Department: Room: Gender: Female Multimedia Artist: BEBETO : 1975 Requested By: Order Number: [id number] Reading MD: Jp Menard Measurements Intervals [place] Rate: 99 P: 43 MT: 130 QRS: 10 QRSD: 70 T: 36 QT: 340 QTc: 436 Interpretive Statements Normal sinus rhythm Nonspecific ST abnormality Electronically Signed On 01-13-2025 14:37:15 PDT by Jp Menard
--- NOTE | 2025-01-12 16:29 | DI.RAD.S_ITS ---
PROCEDURE: XR CHEST 1V INDICATIONS: chest pain TECHNIQUE: One view of the chest was acquired. COMPARISON: [facility], , XR CHEST 1V, 12/22/2019, 21:37. [facility], , CHEST 2 VIEW, 03/28/2015, 10:25. FINDINGS: Surgical changes and devices: None. Lungs and pleura: Lungs are clear. No pleural effusions or pneumothorax. Mediastinum: Mediastinal contours appear normal. Heart size is normal. Bones and chest wall: No suspicious bony lesions. Overlying soft tissues appear unremarkable. IMPRESSION: No acute cardiopulmonary abnormality is seen. Dictated by: Gerard Gerard M.D. on 01/12/2025 at 17:02 Approved by: Gerard eGrard M.D. on 01/12/2025 at 17:02
--- NOTE | 2025-01-12 16:46 | PC.NURSE ---
Dr. Read made aware of pt's upper extremity swelling and reddness/ feelings of impending doom. RN explained concerns for possible allergic reaction. No known exposure. Airway intact, VSS.
[2025-01-12 16:47] LABS: Add Manual Diff / Slide Review NO; Basophils Absolute Auto 0 /uL (0-100); Basophils Percent Auto 0.2 % (0-2); Eosinophils Absolute Auto 0 /uL (0-450); Eosinophils Percent Auto 0.4 % (2-4); Hematocrit 45.4 % (36-46); Hemoglobin 15.6 g/dL (12.0-16.0); Lymphocytes Absolute Auto 1700 /uL (1100-4500); Lymphocytes Percent Auto 15.9 % (25-40); Mean Corpuscular HGB Conc 34.3 % (30-36); Mean Corpuscular Volume 90.4 fL (80-100); Monocytes Absolute Auto 600 /uL (0-900); Monocytes Percent Auto 5.6 % (3-14); Neutrophils Absolute Auto 8200 /uL (1500-7000); Neutrophils Percent Auto 77.9 % (50-75); Platelet Count 278 X10^3/uL (150-400); Red Blood Cell Count 5.03 X10^6/uL (4.0-5.2); Red Cell Distribution Width 13.5 % (11.6-14.8); White Blood Cell Count 10.5 X10^3/uL (4.5-11.0)
[2025-01-12 16:59] LABS: PTT Partial Thromboplastin Tim 29 SECONDS (25.1-36.5)
[2025-01-12 17:00] LABS: Alanine Aminotransferase 17 IU/L (<35); Albumin 4.6 g/dL (3.5-5.0); Albumin Globulin Ratio 1.5 (1.0-2.8); Alkaline Phosphatase 118 U/L (38-126); Aspartate Aminotransferase 26 IU/L (14-36); BUN Creatinine Ratio 12.4 (6-22); Bilirubin Total 0.8 mg/dL (0.2-1.3); Blood Urea Nitrogen 12 mg/dL (7-17); Calcium 9.7 mg/dL (8.4-10.2); Carbon Dioxide 23 mmol/L (22-32); Chloride 102 mmol/L (98-107); Creatine Kinase 64 U/L (30-135); Estimated Glomerular Filt Rate > 60 mL/min (>60); Globulin 3.1 g/dL (1.7-4.1); Glucose 129 mg/dL (70-100); HEMOLYSIS < 15 (0-50); Lipase 122 U/L (23-300); Magnesium 1.7 mg/dL (1.6-2.3); Potassium 3.6 mmol/L (3.4-5.1); Sodium 136 mmol/L (137-145); Total Protein 7.7 g/dL (6.3-8.2)
--- NOTE | 2025-01-12 17:01 | ED.ARRPALP ---
HPI - Arrhythmia/Palpitations General Chief Complaint: Arrhythmia/Palpitations Stated Complaint: sent by [facility], pins and needles, dry mouth Time Seen by Provider: 01/12/25 16:44 Source: patient and family Mode of arrival: Wheelchair History of Present Illness HPI narrative: Patient is a 49-year-old female history of hyperlipidemia hypothyroid presenting today with sudden onset of itching difficulty speaking. She did have ice cream last night with tree nuts in it but has never had any sort of food allergy before. This morning while at work really started feeling like her skin was getting red and who is itching all over did not feel like her tongue or speech was right. No new medications no new exposures. She took 25 of Benadryl prior to arrival. Started having some fluttering in her chest while in the ED Related Data Home Medications Medication Instructions Recorded Confirmed omeprazole magnesium 20 mg 20 mg PO DAILY Gerd. Heartburn. 12/03/24 12/03/24 tablet,delayed release (Prilosec OTC) estradiol 0.01% (0.1 mg/gram) 1 applic vaginal .PRN 12/24/24 12/24/24 vaginal cream hydrocortisone acetate 25 mg 25 mg MA .PRN 12/24/24 rectal suppository (Anusol-HC) Previous Rx's Medication Instructions Recorded atorvastatin 40 mg tablet 40 mg PO DAILY #90 tabs 06/26/24 levothyroxine 50 mcg tablet 50 mcg PO QDAY #90 tabs 06/26/24 (Synthroid) prednisone 20 mg tablet 20 mg PO DAILY #5 tabs 01/12/25 Allergies Allergy/AdvReac Type Severity Reaction Status Date / Time benzonatate Allergy Intermediate Facial Verified 12/24/24 08:08 swelling sore throat amoxicillin Allergy Mild HIVES, RASH Verified 12/24/24 08:08 doxycycline Allergy Mild Rash Verified 12/24/24 08:08 Sulfa (Sulfonamide Allergy Mild HIVES Verified 12/24/24 08:08 Antibiotics) progesterone AdvReac Intermediate Dizziness Verified 12/24/24 08:08 [From Prometrium] Patient History Medical History Abnormal heart rhythm Abnormal sensation of thorax Generalized anxiety disorder GERD (gastroesophageal reflux disease) Hypothyroid Abnormal mammogram of left breast Encounter for wellness examination in adult (08/20/20) Mixed hyperlipidemia Rectal bleeding Surgical History Status post vaginal hysterectomy Status post endoscopy Family History Father Age: 80 Skin cancer Hypertension Mother Age: 78 Skin cancer High cholesterol Family history of thyroid problem Hypertension Bladder cancer Sister Age: 53 Skin cancer Social History marital status: household members: spouse and children occupational status: employed Smoking Status: Never smoker second hand exposure: No alcohol intake: never substance use type: does not use Smoking Status: Never smoker alcohol intake frequency: holidays/special occasions only Exam Initial Vital Signs Initial Vital Signs: Vital Signs Temperature 98.6 F 01/12/25 16:23 Pulse Rate 88 01/12/25 16:23 Respiratory Rate 18 01/12/25 16:23 Blood Pressure 121/65 01/12/25 16:23 Pulse Oximetry 98 01/12/25 16:23 Oxygen Delivery Method Room Air 01/12/25 16:23 GENERAL: Alert 49-year-old female HEENT: Head atraumatic,EOMI, pupils reactive, face symmetric, no obvious tongue swelling lip swelling CARDIOVASCULAR: Regular rate and rhythm without murmurs, rubs or gallops. RESPIRATORY: Breath sounds equal bilaterally, no wheezes rales or rhonchi. ABDOMEN: Soft, nontender. Normoactive bowel sounds all 4 quadrants. No guarding or rebound. EXTREMITIES: Normal range of motion, no clubbing or edema. Neurovascularly intact NEUROLOGICAL: Alert and oriented x4.Normal gait and speech. Cranial nerves II through XII grossly intact. SKIN: Both arms or erythematous blanchable no significant urticaria Course Orders Ordered: ED Orders 01/12/25 16:29 XR chest 1V Stat EKG-12 Lead Stat 01/12/25 16:40 Complete Blood Count AUTO DIFF Stat Comprehensive Metabolic Panel Stat Lipase Stat Magnesium Stat NT-proBNP (BNP-Adult 18+) Stat PTT Partial Thromboplastin Mani Stat Prothrombin Time INR Stat Troponin & CK Cardiac Panel Stat Discontinued Medications Aspirin (Aspirin 81 Mg Chew Tab) 324 mg PO NOW ONE Stop: 01/12/25 16:30 Last Admin: 01/12/25 17:32 Dose: Not Given Documented By: WILVER Diphenhydramine HCl (Diphenhydramine 50 Mg/Ml Vial) 25 mg IV NOW ONE Stop: 01/12/25 16:58 Last Admin: 01/12/25 17:04 Dose: 25 mg Documented By: AYDIN Famotidine (Famotidine 20 Mg/2 Ml Vial) 20 mg IV NOW MONTEZ Last Admin: 01/12/25 17:04 Dose: 20 mg Documented By: AYDIN Methylprednisolone (Methylprednisolone 125 Mg/2 Ml Vial) 125 mg IV NOW ONE Stop: 01/12/25 16:58 Last Admin: 01/12/25 17:06 Dose: 125 mg Documented By: AYDIN Vital Signs Vital signs: Vital Signs - 8 hr 01/12/25 16:23 01/12/25 18:48 Temperature 98.6 F Pulse Rate 88 76 Respiratory Rate 18 17 Blood Pressure 121/65 118/71 Pulse Oximetry 98 98 Oxygen Delivery Method Room Air Room Air MDM - Arrhythmia/Palpitations Lab Data 01/12/25 16:40 01/12/25 16:40 Labs: Lab Results 01/12/25 Range/Units 16:40 WBC 10.5 (4.5-11.0) X10^3/uL RBC 5.03 (4.0-5.2) X10^6/uL Hgb 15.6 (12.0-16.0) g/dL Hct 45.4 (36-46) % MCV 90.4 (80-100) fL MCH 31.0 (26-34) PG MCHC 34.3 (30-36) % RDW 13.5 (11.6-14.8) % Plt Count 278 (150-400) X10^3/uL Neut % (Auto) 77.9 H (50-75) % Lymph % (Auto) 15.9 L (25-40) % [place] % (Auto) 5.6 (3-14) % Eos % (Auto) 0.4 L (2-4) % Baso % (Auto) 0.2 (0-2) % Neut # (Auto) 8200 H (6493-1464) /uL Lymph # (Auto) 1700 (5513-7505) /uL [place] # (Auto) 600 (0-900) /uL Eos # (Auto) 0 (0-450) /uL Baso # (Auto) 0 (0-100) /uL PT 11.0 (9.4-12.5) SECONDS INR 1.0 (0.9-1.3) APTT 29 (25.1-36.5) SECONDS Sodium 136 L (137-145) mmol/L Potassium 3.6 (3.4-5.1) mmol/L Chloride 102 (98-107) mmol/L Carbon Dioxide 23 (22-32) mmol/L BUN 12 (7-17) mg/dL Creatinine 0.97 (0.52-1.04) mg/dL Estimated GFR > 60 (>60) mL/min BUN/Creatinine Ratio 12.4 (6-22) Glucose 129 H (70-100) mg/dL Calcium 9.7 (8.4-10.2) mg/dL Magnesium 1.7 (1.6-2.3) mg/dL Total Bilirubin 0.8 (0.2-1.3) mg/dL AST 26 (14-36) IU/L ALT 17 (<35) IU/L Alkaline Phosphatase 118 (38-126) U/L Total Creatine Kinase 64 (30-135) U/L Troponin I < 0.012 (0.01-0.034) ng/mL NT-Pro-B Natriuret Pep 44 (<125) pg/mL Total Protein 7.7 (6.3-8.2) g/dL Albumin 4.6 (3.5-5.0) g/dL Globulin 3.1 (1.7-4.1) g/dL Albumin/Globulin Ratio 1.5 (1.0-2.8) Lipase 122 (23-300) U/L Imaging Data Chest x-ray: Radiologist's Impresson: PROCEDURE: XR CHEST 1V INDICATIONS: chest pain TECHNIQUE: One view of the chest was acquired. COMPARISON: [facility], XR CHEST 1V, 12/22/2019, 21:37. [facility], CHEST 2 VIEW, 03/28/2015, 10:25. FINDINGS: Surgical changes and devices: None. Lungs and pleura: Lungs are clear. No pleural effusions or pneumothorax. Mediastinum: Mediastinal contours appear normal. Heart size is normal. Bones and chest wall: No suspicious bony lesions. Overlying soft tissues appear unremarkable. IMPRESSION: No acute cardiopulmonary abnormality is seen. Dictated by: Gerard Gerard M.D. on 01/12/2025 at 17:02 ECG Data Attestation: I personally reviewed and interpreted this ECG as follows: Prior ECG tracings: available for review Interpretation: Normal sinus rhythm rate 99 MA interval 130 QRS [address] changes MDM Narrative Medical decision making narrative: Patient 49-year-old female presenting to day with skin itching difficulty talking. She has no history of anaphylactic or allergic reactions. Was having some chest fluttering or pain in the ED Blood work overall reassuring negative troponin, no leukocytosis or anemia electrolytes within normal limits EKGs no evidence of ischemia Chest x-ray no acute cardiopulmonary process Patient given Solu-Medrol Benadryl and Pepcid. Reexamined she was overall feeling much better. She has no evidence of angioedema anaphylaxis definitely had some sort of urticaria allergic like reaction. I do not think this is cardiac in any way. We talked about allergy testing if needed. Overall patient feels comfortable going home. Discharge Plan Departure Patient Disposition: Home Clinical Impression: Allergic reaction Instructions: DI for General Allergic Reactions Activity Restrictions/Additional Instructions: So nice to see you today I hope that you start feeling better soon! *You have been diagnosed with allergic reaction *What to do: At this time consider getting allergy testing especially you if you have another reaction *Continue to take medications as directed Prednisone 20 mg once a day for the next 2-5 days as needed Benadryl 25-50 mg every 6 hours if needed for itching *Follow up with your primary care provider in 2-3 days or call [phone] *Return to ER if you should have increased tongue swelling lip swelling difficulty swallowing speaking worsening rash or any new, worsening or concerning symptoms Prescriptions: New prednisone 20 mg tablet 20 mg PO DAILY Qty: 5 0RF No Action atorvastatin 40 mg tablet 40 mg PO DAILY Qty: 90 1RF levothyroxine [Synthroid] 50 mcg tablet 50 mcg PO QDAY Qty: 90 1RF hydrocortisone acetate [Anusol-HC] 25 mg suppository 25 mg MA .PRN estradiol 0.01 % (0.1 mg/gram) cream 1 applic vaginal .PRN omeprazole magnesium [Prilosec OTC] 20 mg tablet,delayed release (DR/EC) 20 mg PO DAILY Referrals: Toshia Dubois DO [Primary Care Provider] - Stand Alone Forms: Patient Portal/API/Survey
[2025-01-12] MEDS: FAMOTIDINE 20 MG/2 ML VIAL IV (17:04)
[2025-01-12] MEDS: diphenhydrAMINE 50 MG/ML VIAL 25 MG IV (17:04)
[2025-01-12] MEDS: methylPREDNISolone 125 MG/2 ML VIAL IV (17:06)
[2025-01-12 17:12] LABS: NT-proBNP (BNP-Adult 18+) 44 pg/mL (<125); Troponin I < 0.012 ng/mL (0.01-0.034)
--- NOTE | 2025-01-12 18:47 | PC.NURSE ---
Patient evaluated, treated and discharged by provider prior to nursing assessment.
[2025-01-12 18:48] VITALS: BP 118/71; PULSE 76; RESP 17; O2SAT 98
== END 2025-01-12 18:48 | disposition home or self-care (01) ==
PROVIDERS: Emergency Provider Emergency Medicine; PCP Family Medicine
DX: T78.40XA Allergy, unspecified, initial encounter (principal); R00.2 Palpitations
CPT/HCPCS: 36415; 71045; 80053; 82550; 83690; 83735; 83880; 84484; 85025; 85610; 85730; 93005; 96374; 96375; 99284; J1200; J2919

== ENCOUNTER → 2025-03-19 15:01 | Outpatient (CLI) | payer OTHER, SELFPAY ==
[2025-03-19 15:51] LABS: Add Manual Diff / Slide Review NO; Basophils Absolute Auto 0 /uL (0-100); Basophils Percent Auto 0.5 % (0-2); Eosinophils Absolute Auto 0 /uL (0-450); Eosinophils Percent Auto 0.6 % (2-4); Hematocrit 40.3 % (36-46); Hemoglobin 13.9 g/dL (12.0-16.0); Lymphocytes Absolute Auto 900 /uL (1100-4500); Lymphocytes Percent Auto 15.5 % (25-40); Mean Corpuscular HGB Conc 34.4 % (30-36); Mean Corpuscular Hemoglobin 31.4 PG (26-34); Mean Corpuscular Volume 91.1 fL (80-100); Monocytes Absolute Auto 400 /uL (0-900); Monocytes Percent Auto 7.4 % (3-14); Neutrophils Absolute Auto 4500 /uL (1500-7000); Platelet Count 217 X10^3/uL (150-400); Red Blood Cell Count 4.42 X10^6/uL (4.0-5.2); Red Cell Distribution Width 13.1 % (11.6-14.8); White Blood Cell Count 5.9 X10^3/uL (4.5-11.0)
[2025-03-19 16:14] LABS: Erythrocyte Sedimentation Rate 8 MM/HR (0-20)
[2025-03-19 16:17] LABS: Alanine Aminotransferase 14 IU/L (<35); Albumin 4.5 g/dL (3.5-5.0); Albumin Globulin Ratio 1.6 (1.0-2.8); Alkaline Phosphatase 84 U/L (38-126); Aspartate Aminotransferase 23 IU/L (14-36); BUN Creatinine Ratio 13.2 (6-22); Bilirubin Total 0.5 mg/dL (0.2-1.3); Blood Urea Nitrogen 14 mg/dL (7-17); C-Reactive Protein Quant < 0.5 mg/dL (<1.0); Calcium 9.4 mg/dL (8.4-10.2); Carbon Dioxide 28 mmol/L (22-32); Chloride 104 mmol/L (98-107); Estimated Glomerular Filt Rate > 60 mL/min (>60); Globulin 2.9 g/dL (1.7-4.1); Glucose 104 mg/dL (70-99); HEMOLYSIS < 15 (0-50); Potassium 4.2 mmol/L (3.4-5.1); Sodium 141 mmol/L (137-145); Total Protein 7.4 g/dL (6.3-8.2)
[2025-03-19 16:46] LABS: TSH w/ Reflex to FT4 1.66 uIU/mL (0.47-4.68)
[2025-03-19 16:55] LABS: Appearance Urine UA CLEAR; Bilirubin Urine UA NEGATIVE (NEGATIVE); Color Urine UA YELLOW; Glucose Urine UA NEGATIVE (Negative); Ketones Urine UA NEGATIVE (NEGATIVE); Leukocyte Esterase Urine UA NEGATIVE (NEGATIVE); Nitrite Urine UA NEGATIVE (Negative); Occult Blood Urine UA TRACE-INTACT (Negative); Protein Urine UA NEGATIVE (Negative); Urobilinogen Urine UA 0.2 E.U./dL (0.2)
[2025-03-19 17:01] LABS: pH Urine UA 5.5 (4.5-8.0)
[2025-03-19 17:09] LABS: Bacteria Urine None Seen; Culture Indicated Urine Cult Not Indicated; RBC Urine 1-5/HPF (0-5/HPF); Squamous Epithelial Cell Urine 5-10 /HPF (0-5/HPF); Urine Volume 10mL (spun); WBC Urine None Seen (0-5/HPF)
== END ==
LOC: LAB 15:04
PROVIDERS: PCP Family Medicine; Referring Provider Chiropractor; Visit Provider Chiropractor
DX: R42 Dizziness and giddiness (principal)
CPT/HCPCS: 36415; 80053; 81001; 84443; 85025; 85651; 86140

== ENCOUNTER → 2025-08-29 10:22 | Outpatient (CLI) | payer OTHER, SELFPAY ==
[2025-08-29 11:31] LABS: Alanine Aminotransferase 11 IU/L (<35); Albumin 4.0 g/dL (3.5-5.0); Albumin Globulin Ratio 1.5 (1.0-2.8); Alkaline Phosphatase 79 U/L (38-126); Blood Urea Nitrogen 14 mg/dL (7-17); Calcium 8.9 mg/dL (8.4-10.2); Carbon Dioxide 27 mmol/L (22-32); Chloride 106 mmol/L (98-107); Cholesterol 156 mg/dL (140-199); Estimated Glomerular Filt Rate > 60 mL/min (>60); Globulin 2.7 g/dL (1.7-4.1); Glucose 92 mg/dL (70-99); HDL Cholesterol 43 mg/dL (40-60); HEMOLYSIS < 15 (0-50); Potassium 4.1 mmol/L (3.4-5.1); Sodium 138 mmol/L (137-145); Total Protein 6.7 g/dL (6.3-8.2); Triglycerides 164 mg/dL (35-150)
[2025-08-29 12:02] LABS: TSH w/ Reflex to FT4 1.72 uIU/mL (0.47-4.68)
[2025-08-30 08:08] LABS: CRP, High Sensitivity 0.65 mg/L (0.00-3.00)
== END ==
PROVIDERS: PCP Family Medicine; Referring Provider Family Medicine; Visit Provider Family Medicine
DX: R79.89 Other specified abnormal findings of blood chemistry (principal); E03.9 Hypothyroidism, unspecified; E78.2 Mixed hyperlipidemia
CPT/HCPCS: 36415; 80053; 80061; 84443; 86140